=== PATIENT | male | born 1945 | race Hispanic/Latino ===

== ENCOUNTER 2018-11-12 14:03 | Outpatient (CLI) | payer MEDICARE | END 2018-11-12 14:04 | disposition home or self-care (01) | LOC: C.LAB 14:03 ==

== ENCOUNTER 2018-11-12 14:21 | Inpatient (IN) | payer MEDICARE, MEDICAID ==
[2018-11-12 14:21] VITALS: BMI 29.6
[2018-11-12] MEDS ORDERED: Sodium Chloride 0.9% 1,000 ML IV ONE (15:41)
[2018-11-12 16:11] LABS: BASO # 0.1 K/uL (0.0-0.2); BASO % 0.6 % (0.0-2.0); EOS # 0.2 K/uL (0.0-0.7); EOS % 1.4 % (0.0-4.0); HEMOGLOBIN 14.6 g/dL (12.0-18.0); LYMPH # 1.5 K/uL (1.0-4.3); LYMPH % 13.3 % (20.0-40.0); MEAN CELL VOLUME 90.1 fL (80.0-94.0); MEAN CORPUSCULAR HEMOGLOBIN 30.2 pg (27.0-31.0); MEAN CORPUSCULAR HGB CONC 33.5 g/dL (33.0-37.0); MEAN PLATELET VOLUME 8.3 fL (7.2-11.7); MONO # 0.8 K/uL (0.0-0.8); MONO % 6.7 % (0.0-10.0); NRBC % 0.1 % (0.0-2.0); RBC 4.82 Mil/uL (4.40-5.90); RED CELL DISTRIBUTION WIDTH 14.5 % (11.5-14.5); WHITE BLOOD COUNT 11.6 K/uL (4.8-10.8)
[2018-11-12] MEDS ORDERED: Sodium Chloride 0.9% 1,000 ML ONE ×2 (16:16→18:33)
--- NOTE | 2018-11-12 16:25 | C.PDOC ---
History Of Present Illness 72 y/o male presents to the ER complaining of diffuse abdominal pain which has been present for the past 1 week. Patient states that he has dry heaving. Patient reports that he is scheduled to see GI tomorrow. Denies having fever,chi lls, vomiting, diarrhea, constipation, dysuria,and hematuria. <Kevin Orellana M - Last Filed: 11/12/18 18:53> History Per: Patient History/Exam Limitations: no limitations Onset/Duration Of Symptoms: Days Current Symptoms Are (Timing): Still Present Severity: Moderate <Kevin Orellana - Last Filed: 11/12/18 18:53> <Murray Cox - Last Filed: 11/13/18 11:27> Time Seen by Provider: 11/12/18 15:35 Chief Complaint (Nursing): Abdominal Pain Past Medical History Reviewed: Historical Data, Nursing Documentation, Vital Signs Vital Signs: Last Vital Signs Temp 97.6 F 11/12/18 15:01 Pulse 94 H 11/12/18 15:01 Resp 19 11/12/18 15:01 BP 119/82 11/12/18 15:01 Pulse Ox 91 L 11/12/18 15:01 - Medical History PMH: Colonic Polyps, COPD, HTN, Hypercholesterolemia Other Surgeries: Hx of surgeries Family History: States: No Known Family Hx - Social History Hx Alcohol Use: No Hx Substance Use: No - Immunization History Hx Tetanus Toxoid Vaccination: No Hx Influenza Vaccination: No Hx Pneumococcal Vaccination: No <Kevin Orellana M - Last Filed: 11/12/18 18:53> Vital Signs: Last Vital Signs Temp 97.6 F 11/13/18 08:43 Pulse 62 11/13/18 08:43 Resp 20 11/13/18 08:43 BP 111/74 11/13/18 08:43 Pulse Ox 95 11/13/18 08:43 <Murray Cox - Last Filed: 11/13/18 11:27> Review Of Systems Except As Marked, All Systems Reviewed And Found Negative. Constitutional: Negative for: Fever, Chills Gastrointestinal: Positive for: Abdominal Pain. Negative for: Vomiting, Diarrhea Genitourinary: Negative for: Dysuria, Hematuria <Kevin Orellana M - Last Filed: 11/12/18 18:53> Physical Exam - Physical Exam Appears: Non-toxic, No Acute Distress Skin: Normal Color, Warm, Dry Head: Atraumatic, Normacephalic Eye(s): bilateral: Normal Inspection Nose: Normal Oral Mucosa: Moist Neck: Supple Chest: Symmetrical Cardiovascular: Rhythm Regular Respiratory: Normal Breath Sounds, No Rales, No Rhonchi, No Wheezing Gastrointestinal/Abdominal: Bowel Sounds (normal bowel sounds), Soft, Tenderness (diffuse tenderness), No Guarding, No Rebound Neurological/Psych: Oriented x3, Normal Speech <EstebanMaicolBrown M - Last Filed: 11/12/18 18:53> ED Course And Treatment - Laboratory Results Result Diagrams: 11/12/18 16:08 11/12/18 16:47 ECG: Interpreted By Me, Viewed By Me ECG Rhythm: Sinus Rhythm Interpretation Of ECG: NSR with normal intervals, normal axises, and no ST/ T wave abnormalities Rate From EC O2 Sat by Pulse Oximetry: 91 (RA) Pulse Ox Interpretation: Other (Low) - CT Scan/US CT - Abd & Pelv. Other Rad Studies (CT/US): Read By Radiologist, Radiology Report Reviewed CT/US Interpretation: PROCEDURE: CT Abdomen and Pelvis without Oral or IV contrast. HISTORY: abd. pain. COMPARISON: None available. TECHNIQUE: Contiguous axial images of the abdomen and pelvis. No oral or IV contrast administered. Coronal and Sagittal reformats generated and reviewed. Radiation dose: Total exam DLP = 1081.57 mGy-cm. This CT exam was performed using one or more of the following dose reduction techniques: Automated exposure control, adjustment of the mA and/or kV according to patient size, and/or use of iterative reconstruction technique. FINDINGS: There is limited evaluation of the solid organs without the administration of IV contrast. LOWER THORAX: No visible consolidation, pleural effusion, or pneumothorax. LIVER: Unremarkable unenhanced appearance. GALLBLADDER AND BILE DUCTS: Punctate probable gallstone in the gallbladder. PANCREAS: Fatty atrophy of the pancreas. SPLEEN: Unremarkable unenhanced appearance. ADRENALS: Unremarkable. KIDNEYS AND URETERS: The left kidney is absent presumably due to nephrectomy; correlate clinically. 5.5 cm and 1.6 cm right renal hypodense lesions consistent with cysts. No right-sided hydronephrosis or obstructing calculus. No hydronephrosis or obstructing renal calculus. BLADDER: Thick-walled urinary bladder likely exaggerated by under distension. REPRODUCTIVE: The prostate gland measures approximately 5.1 x 5.8 cm. APPENDIX: The appendix appears within normal limits of caliber. No secondary signs of acute appendicitis. BOWEL: The stomach is nondistended. Lack of oral contrast limits evaluation for bowel pathology. The bowel loops appear within normal limits of caliber without evidence of intestinal obstruction. Diverticulosis without CT evidence of acute diverticulitis. PERITONEUM: No significant free fluid. No definite free air. LYMPH NODES: No bulky lymphadenopathy identified. VASCULATURE: Atherosclerotic calcifications of the aorta and branches. No aortic aneurysm. BONES: Degenerative changes. OTHER FINDINGS: Fat containing left inguinal hernia. IMPRESSION: Probable gallstone within the gallbladder. Left nephrectomy. 5.5 cm 1.6 cm right renal cysts. Thick-walled urinary bladder likely exaggerated by under distension. Recommend correlation with urinalysis. Enlarged prostate gland. Recommend correlation with PSA. Diverticulosis without CT evidence of acute diverticulitis. Additional findings as above. <Kevin Orellana M - Last Filed: 11/12/18 18:53> - Laboratory Results Result Diagrams: 11/13/18 07:50 11/13/18 07:50 Lab Results: Troponin I < 0.0120 ng/mL (0.00-0.120) 11/12/18 16:08 Total Bilirubin 0.3 mg/dL (0.2-1.3) 11/13/18 07:50 AST 33 U/L (17-59) 11/13/18 07:50 ALT 15 U/L (21-72) L 11/13/18 07:50 Alkaline Phosphatase 49 U/L (38-126) 11/13/18 07:50 Total Protein 6.7 g/dL (6.3-8.3) 11/13/18 07:50 Albumin 4.2 g/dL (3.5-5.0) 11/13/18 07:50 Globulin 2.5 gm/dL (2.2-3.9) 11/13/18 07:50 Albumin/Globulin Ratio 1.7 (1.0-2.1) 11/13/18 07:50 Amylase 163 U/L (30-110) H 11/13/18 07:50 Lipase 1260 U/L (23-300) H 11/13/18 07:50 Urine Color Yellow (YELLOW) 11/12/18 17:32 Urine Clarity Hazy (Clear) 11/12/18 17:32 Urine pH 7.0 (5.0-8.0) 11/12/18 17:32 Ur Specific [place] 1.015 (1.003-1.030) 11/12/18 17:32 Urine Protein Negative mg/dL (NEGATIVE) 11/12/18 17:32 Urine Glucose (UA) Normal mg/dL (Normal) 11/12/18 17:32 Urine Ketones Negative mg/dL (NEGATIVE) 11/12/18 17:32 Urine Blood Negative (NEGATIVE) 11/12/18 17:32 Urine Nitrate Negative (NEGATIVE) 11/12/18 17:32 Urine Bilirubin Negative (NEGATIVE) 11/12/18 17:32 Urine Urobilinogen Normal mg/dL (0.2-1.0) 11/12/18 17:32 Ur Leukocyte Esterase Neg Mikaela/uL (Negative) 11/12/18 17:32 Urine WBC (Auto) 1 /hpf (0-5) 11/12/18 17:32 Urine RBC (Auto) 1 /hpf (0-3) 11/12/18 17:32 Ur Squamous Epith Cells < 1 /hpf (0-5) 11/12/18 17:32 <Murray Cox - Last Filed: 11/13/18 11:27> Supervising Attending Note - Supervising Attending Note The Documented history was done by the: Attending Physician The documented physical exam was done by the: Attending Physician The documented procedures were done by the: Attending Physician - Attestation: I have personally seen and examined this patient.: Yes I have fully participated in the care of the patient.: Yes <Murray Cox - Last Filed: 11/13/18 11:27> Medical Decision Making Medical Decision Making: Assessment: Abdominal Pain Plan: --Labs --UA --CXR --CT- Abd & Pelv. --IV Fluids --Zofran IV --Pepcid IV --Toradol IV <Kevin Orellana - Last Filed: 11/12/18 18:53> Disposition Discussed With : Marcie Benton Doctor Will See Patient In The: Hospital Counseled Patient/Family Regarding: Studies Performed, Diagnosis - Disposition Disposition Time: 17:45 <Kevin Orellana - Last Filed: 11/12/18 18:53> <Murray Cox - Last Filed: 11/13/18 11:27> - Disposition Disposition: HOSPITALIZED Condition: FAIR - Clinical Impression Clinical Impression: Renal failure, Hyperkalemia, Pancreatitis - Scribe Statement The provider has reviewed the documentation as recorded by the Scribe Nolan Li Provider Attestation: All medical record entries made by the Scribe were at my direction and persona lly dictated by me. I have reviewed the chart and agree that the record accurately reflects my personal performance of the history, physical exam, medical decision making, and the department course for this patient. I have also personally directed, reviewed, and agree with the discharge instructions and disposition. <Kevin Orellana M - Last Filed: 11/12/18 18:53> Attending/Attestation - Attestation I have personally seen and examined this patient.: Yes I have fully participated in the care of the patient.: Yes I have reviewed all pertinent clinical information: Yes Notes (Text): 11/13/18 11:26 Patient seen and chart reviewed. Patient symptoms appear to be related to acute renal insufficiency in a patient with one kidney. Underlying dehydration and pre-renal azotemia most likely. Perhaps related to acute gastroenteritis. Gallstone does not appear to be obstucting and is an incidental finding. Elevated lipase not significant in the absence of CT findings of pancreatitis. IV hydration Renal evaluation pending Supportive care from GI point of view. <Murray Cox - Last Filed: 11/13/18 11:27>
[2018-11-12 16:35] LABS: ALB/GLOB RATIO 1.4 (1.0-2.1); ALT/SGPT 18 U/L (21-72); AST/SGOT 32 U/L (17-59); BLOOD UREA NITROGEN 81 mg/dL (9-20); CALCIUM 11.3 mg/dl (8.6-10.4); GFR NON-AFRICAN AMERICAN 10; LIPASE 585 U/L (23-300)
[2018-11-12 17:13] LABS: CALCIUM 10.4 mg/dl (8.6-10.4)
[2018-11-12] MEDS ORDERED: Dextrose 50% SYRINGE Inj (50 ml) IV STA (17:43)
[2018-11-12] MEDS ORDERED: (Novolin R) Insulin Human Regular 100 units/ml vial IV ONE (17:43)
--- NOTE | 2018-11-12 17:59 | RAD ---
Date of service: 11/12/2018 PROCEDURE: CHEST RADIOGRAPH, 1 VIEW HISTORY: abd pain COMPARISON: None available. FINDINGS: LUNGS: Clear. PLEURA: No pneumothorax or pleural fluid seen. CARDIOVASCULAR: Atherosclerotic calcifications identified primarily aortic arch. No radiographic findings to suggest acute or significant cardiovascular disease. OSSEOUS STRUCTURES: No significant abnormalities. VISUALIZED UPPER ABDOMEN: Normal. OTHER FINDINGS: None. IMPRESSION: No active disease.
[2018-11-12 18:04] LABS: SQUAMOUS EPITHIAL < 1 /hpf (0-5); URINE BILIRUBIN NEGATIVE (NEGATIVE); URINE BLOOD NEGATIVE (NEGATIVE); URINE CLARITY Hazy (Clear); URINE COLOR Yellow (YELLOW); URINE GLUCOSE (UA) NORMAL (Normal); URINE LEUKOCYTE ESTERASE NEG Leu/uL (Negative); URINE PROTEIN NEGATIVE (NEGATIVE); URINE UROBILINOGEN NORMAL mg/dL (0.2-1.0)
[2018-11-12] MEDS ORDERED: Dextrose 50% SYRINGE Inj (50 ml) ONE (18:33)
[2018-11-12] MEDS ORDERED: (Novolin R) Insulin Human Regular 100 units/ml vial ONE (18:33)
--- NOTE | 2018-11-12 18:50 | CT ---
PROCEDURE: CT Abdomen and Pelvis without Oral or IV contrast. HISTORY: abd. pain COMPARISON: None available. TECHNIQUE: Contiguous axial images of the abdomen and pelvis. No oral or IV contrast administered. Coronal and Sagittal reformats generated and reviewed. Radiation dose: Total exam DLP = 1081.57 mGy-cm. This CT exam was performed using one or more of the following dose reduction techniques: Automated exposure control, adjustment of the mA and/or kV according to patient size, and/or use of iterative reconstruction technique. FINDINGS: There is limited evaluation of the solid organs without the administration of IV contrast. LOWER THORAX: No visible consolidation, pleural effusion, or pneumothorax. LIVER: Unremarkable unenhanced appearance. GALLBLADDER AND BILE DUCTS: Punctate probable gallstone in the gallbladder. PANCREAS: Fatty atrophy of the pancreas. SPLEEN: Unremarkable unenhanced appearance. ADRENALS: Unremarkable. KIDNEYS AND URETERS: The left kidney is absent presumably due to nephrectomy; correlate clinically. 5.5 cm and 1.6 cm right renal hypodense lesions consistent with cysts. No right-sided hydronephrosis or obstructing calculus. No hydronephrosis or obstructing renal calculus. BLADDER: Thick-walled urinary bladder likely exaggerated by under distension. REPRODUCTIVE: The prostate gland measures approximately 5.1 x 5.8 cm. APPENDIX: The appendix appears within normal limits of caliber. No secondary signs of acute appendicitis. BOWEL: The stomach is nondistended. Lack of oral contrast limits evaluation for bowel pathology. The bowel loops appear within normal limits of caliber without evidence of intestinal obstruction. Diverticulosis without CT evidence of acute diverticulitis. PERITONEUM: No significant free fluid. No definite free air. LYMPH NODES: No bulky lymphadenopathy identified. VASCULATURE: Atherosclerotic calcifications of the aorta and branches. No aortic aneurysm. BONES: Degenerative changes. OTHER FINDINGS: Fat containing left inguinal hernia. IMPRESSION: Probable gallstone within the gallbladder. Left nephrectomy. 5.5 cm 1.6 cm right renal cysts. Thick-walled urinary bladder likely exaggerated by under distension. Recommend correlation with urinalysis. Enlarged prostate gland. Recommend correlation with PSA. Diverticulosis without CT evidence of acute diverticulitis. Additional findings as above.
[2018-11-13 02:08] VITALS: RESP 20
[2018-11-13 08:23] LABS: BASO % 0.6 % (0.0-2.0); EOS # 0.2 K/uL (0.0-0.7); EOS % 3.5 % (0.0-4.0); LYMPH # 1.5 K/uL (1.0-4.3); LYMPH % 23.9 % (20.0-40.0); MEAN CELL VOLUME 91.2 fL (80.0-94.0); MEAN CORPUSCULAR HEMOGLOBIN 30.8 pg (27.0-31.0); MEAN CORPUSCULAR HGB CONC 33.8 g/dL (33.0-37.0); MEAN PLATELET VOLUME 7.8 fL (7.2-11.7); MONO # 0.5 K/uL (0.0-0.8); MONO % 7.2 % (0.0-10.0); NEUT # 4.1 K/uL (1.8-7.0); NEUT % 64.8 % (50.0-75.0); RBC 4.06 Mil/uL (4.40-5.90); RED CELL DISTRIBUTION WIDTH 14.7 % (11.5-14.5); WHITE BLOOD COUNT 6.3 K/uL (4.8-10.8)
[2018-11-13 08:28] LABS: HEMOGLOBIN 12.5 g/dL (12.0-18.0)
[2018-11-13 08:39] LABS: ALB/GLOB RATIO 1.7 (1.0-2.1); ALBUMIN 4.2 g/dL (3.5-5.0); CALCIUM 9.4 mg/dl (8.6-10.4)
--- NOTE | 2018-11-13 08:43 | CP.PCM.CON ---
<ToddCamilo - Last Filed: 11/13/18 11:23> History of Present Illness - History of Present Illness History of Present Illness: GI Fellow PGY4, Consult note. Glen Anderson is a 72M presenting with abdominal pain, nausea, vomiting, diarrhea. At time of my exam patient symptoms have mostly resolved stating he "feels much beter now". Patient was complaining of vague moderate diffuse abdominal pain x 1 week. He also complained of non-bloody vomiting. The last time he vomited was 5 days ago. However, he has had difficulty eating and drinking. He was supposed to see GI in the clinic for his symptoms. PCP also has evaluated labs and has told him that his kidney numbers are "getting higher". In the hospital, workup has revealed mild leukocytosis, hyponatremia, significantly elevated potassium, BUN and Cr. We do not have baseline data in the hospital. CT A/P showed small gallstones, absent left kidney, right large kidney cyst, diverticulosis PMHx - CKD, HTN, enlarged prostate, COPD PSHx- appendectomy, left nephrectomy 25yrs ago, colonoscopy (reportedly normal) FMHx - Denies GI related cancers SocHx- Previous heavy smoker. Denies alcohol. 12pt ROS completed and negative except for above. Past Patient History - Infectious Disease Hx of Infectious Diseases: None - Past Medical History & Family History Past Medical History?: Yes - Past Social History Smoking Status: Former Smoker - CARDIAC Hx Hypercholesterolemia: Yes Hx Hypertension: Yes - PULMONARY Hx Chronic Obstructive Pulmonary Disease (COPD): Yes - NEUROLOGICAL Hx Neurological Disorder: No - HEENT Hx HEENT Problems: No - RENAL Other/Comment: LEFT KIDNEY REMOVED - ENDOCRINE/METABOLIC Hx Endocrine Disorders: No - HEMATOLOGICAL/ONCOLOGICAL Hx Blood Disorders: No - INTEGUMENTARY Hx Dermatological Problems: Yes Other/Comment: HX: MASS RIGHT PALM - MUSCULOSKELETAL/RHEUMATOLOGICAL Hx Falls: No - GASTROINTESTINAL Hx Gastrointestinal Disorders: Yes - GENITOURINARY/GYNECOLOGICAL Hx Genitourinary Disorders: Yes Hx Prostate Problems: Yes (ENLARGED) - PSYCHIATRIC Hx Substance Use: No - SURGICAL HISTORY Hx Surgeries: Yes Other/Comment: "I'VE HAD KIDNEY AND LIVER BIOPSIES BUT NO CANCER-JUST NEEDED TO BE CHECKED.". LEFT LOBECTOMY - ANESTHESIA Hx Anesthesia: Yes Hx Anesthesia Reactions: No Hx Malignant Hyperthermia: No Meds Allergies/Adverse Reactions: Allergies Allergy/AdvReac Type Severity Reaction Status Date / Time No Known Allergies Allergy Verified 11/12/18 15:05 - Medications Medications: Current Medications Heparin Sodium (Porcine) (Heparin) 5,000 units SC Q8 PENDING SALE TO [facility] Last Admin: 11/13/18 06:29 Dose: 5,000 units Hydrochlorothiazide (Microzide) 12.5 mg PO DAILY PENDING SALE TO [facility] Montelukast Sodium (Singulair) 10 mg PO DAILY PENDING SALE TO [facility] Ondansetron HCl (Zofran Inj) 4 mg IVP Q6 PRN PRN Reason: Nausea/Vomiting Last Admin: 11/12/18 22:49 Dose: 4 mg Tamsulosin HCl (Flomax) 0.4 mg PO DAILY PENDING SALE TO [facility] Tramadol HCl (Ultram) 50 mg PO Q12 PRN PRN Reason: Pain, severe (8-10) Last Admin: 11/12/18 22:47 Dose: 50 mg Physical Exam - Constitutional Appears: Non-toxic, No Acute Distress - Head Exam Head Exam: ATRAUMATIC, NORMAL INSPECTION - Eye Exam Eye Exam: EOMI, Normal appearance - Respiratory Exam Respiratory Exam: Clear to Auscultation Bilateral, NORMAL BREATHING PATTERN - Cardiovascular Exam Cardiovascular Exam: REGULAR RHYTHM, +S1, +S2 - GI/Abdominal Exam GI & Abdominal Exam: Normal Bowel Sounds, Soft. absent: Organomegaly, Tenderness - Extremities Exam Extremities exam: Positive for: normal inspection. Negative for: pedal edema - Neurological Exam Neurological exam: Alert, CN II-XII Intact, Oriented x3 - Skin Skin Exam: Normal Color, Warm Results - Vital Signs Recent Vital Signs: Last Vital Signs Temp 97.4 F L 11/12/18 23:00 Pulse 55 L 11/13/18 04:00 Resp 20 11/12/18 23:00 BP 93/58 L 11/12/18 23:00 Pulse Ox 95 11/12/18 23:00 - Labs Result Diagrams: 11/13/18 07:50 11/13/18 07:50 Labs: Laboratory Results - last 24 hr 11/12/18 11/12/18 11/12/18 16:08 16:08 16:47 WBC 11.6 H RBC 4.82 Hgb 14.6 Hct 43.4 MCV 90.1 MCH 30.2 MCHC 33.5 RDW 14.5 Plt Count 245 MPV 8.3 Neut % (Auto) 78.0 H Lymph % (Auto) 13.3 L [place] % (Auto) 6.7 Eos % (Auto) 1.4 Baso % (Auto) 0.6 Neut # (Auto) 9.0 H Lymph # (Auto) 1.5 [place] # (Auto) 0.8 Eos # (Auto) 0.2 Baso # (Auto) 0.1 Sodium 129 L 131 L Potassium 6.5 H* 6.3 H* Chloride 94 L 94 L Carbon Dioxide 26 29 Anion Gap 16 14 BUN 81 H 80 H Creatinine 5.6 H 5.6 H Est GFR ( Amer) 12 12 Est GFR (Non-Af Amer) 10 10 POC Glucose (mg/dL) Random Glucose 86 83 Calcium 11.3 H 10.4 Total Bilirubin 0.8 AST 32 ALT 18 L Alkaline Phosphatase 50 Troponin I < 0.0120 Total Protein 8.5 H Albumin 5.0 Globulin 3.5 Albumin/Globulin Ratio 1.4 Lipase 585 H Urine Color Urine Clarity Urine pH Ur Specific [place] Urine Protein Urine Glucose (UA) Urine Ketones Urine Blood Urine Nitrate Urine Bilirubin Urine Urobilinogen Ur Leukocyte Esterase Urine WBC (Auto) Urine RBC (Auto) Ur Squamous Epith Cells 11/12/18 11/13/18 11/13/18 17:32 00:40 07:50 WBC 6.3 RBC 4.06 L Hgb 12.5 D Hct 37.0 MCV 91.2 MCH 30.8 MCHC 33.8 RDW 14.7 H Plt Count 180 MPV 7.8 Neut % (Auto) 64.8 Lymph % (Auto) 23.9 [place] % (Auto) 7.2 Eos % (Auto) 3.5 Baso % (Auto) 0.6 Neut # (Auto) 4.1 Lymph # (Auto) 1.5 [place] # (Auto) 0.5 Eos # (Auto) 0.2 Baso # (Auto) 0.0 Sodium Potassium Chloride Carbon Dioxide Anion Gap BUN Creatinine Est GFR ( Amer) Est GFR (Non-Af Amer) POC Glucose (mg/dL) 116 H Random Glucose Calcium Total Bilirubin AST ALT Alkaline Phosphatase Troponin I Total Protein Albumin Globulin Albumin/Globulin Ratio Lipase Urine Color Yellow Urine Clarity Hazy Urine pH 7.0 Ur Specific [place] 1.015 Urine Protein Negative Urine Glucose (UA) Normal Urine Ketones Negative Urine Blood Negative Urine Nitrate Negative Urine Bilirubin Negative Urine Urobilinogen Normal Ur Leukocyte Esterase Neg Urine WBC (Auto) 1 Urine RBC (Auto) 1 Ur Squamous Epith Cells < 1 Assessment & Plan - Assessment and Plan (Free Text) Assessment: #Abdominal pain - resolved #Hyperkalemia #Hyponatremia #CKD, likely GERMAN from poor PO intake #HTN #COPD PLAN: -CT A/P showed small gallstones, absent left kidney, right large kidney cyst, diverticulosis -Doubt pancreatitis or cholecystitis -Recommend continue supportive care with IV hydration and kayexalate -BP on the low side, and unknown kidney status. Recommend holding HCTZ until PCP/threshing operator evaluates. -Follow electrolytes -Follow up nephrology recs -Zofran as needed -Currently tolerating heart healthy diet. If still having N/V would reduce diet to Full liquid diet Case will be discussed with Dr. Cox, this is a preliminary note. - Date & Time Date: 11/13/18 Time: 08:44 <Murray Cox - Last Filed: 11/14/18 10:32> Meds - Medications Medications: Current Medications Heparin Sodium (Porcine) (Heparin) 5,000 units SC Q8 PENDING SALE TO [facility] Last Admin: 11/14/18 09:36 Dose: 5,000 units Hydrochlorothiazide (Microzide) 12.5 mg PO DAILY PENDING SALE TO [facility] Last Admin: 11/14/18 09:24 Dose: 12.5 mg Sodium Chloride (Sodium Chloride 0.9%) 1,000 mls @ 100 mls/hr IV .Q10H PENDING SALE TO [facility] Last Admin: 11/13/18 21:03 Dose: 100 mls/hr Montelukast Sodium (Singulair) 10 mg PO DAILY PENDING SALE TO [facility] Last Admin: 11/14/18 09:23 Dose: 10 mg Ondansetron HCl (Zofran Inj) 4 mg IVP Q6 PRN PRN Reason: Nausea/Vomiting Last Admin: 11/13/18 21:02 Dose: 4 mg Tamsulosin HCl (Flomax) 0.4 mg PO DAILY PENDING SALE TO [facility] Last Admin: 11/14/18 09:23 Dose: 0.4 mg Tramadol HCl (Ultram) 50 mg PO Q12 PRN PRN Reason: Pain, severe (8-10) Last Admin: 11/13/18 21:01 Dose: 50 mg Results - Vital Signs Recent Vital Signs: Last Vital Signs Temp 973 F H 11/14/18 07:53 Pulse 56 L 11/14/18 07:53 Resp 20 11/14/18 07:53 BP 114/66 11/14/18 07:53 Pulse Ox 96 11/14/18 07:53 - Labs Result Diagrams: 11/13/18 07:50 11/13/18 12:28 Labs: Laboratory Results - last 24 hr 11/13/18 11/13/18 12:28 18:45 Sodium 130 L Potassium 5.4 H Chloride 93 L Carbon Dioxide 29 Anion Gap 13 BUN 81 H Creatinine 5.1 H Est GFR ( Amer) 14 Est GFR (Non-Af Amer) 11 Random Glucose 106 Calcium 8.9 Ur Random Creatinine 63.3 U Random Total Protein 14.0 H Ur Random Sodium 117 Attending/Attestation - Attestation I have personally seen and examined this patient.: Yes I have fully participated in the care of the patient.: Yes I have reviewed all pertinent clinical information: Yes Notes (Text): 11/14/18 10:31 Patient seen and chart reviewed. Symptoms likely due to acute on chronic renal insufficiency. Agree with IV hydration. Will follow
--- NOTE | 2018-11-13 10:10 | CP.PCM.CON ---
History of Present Illness - History of Present Illness History of Present Illness: patient seen and examined consult dictated creatinine 1.6 in 2016 rise in creatine now could be related to natural progession of ckd can not r/o jose due to volume depletion,medication toxicity agree with iv fluids for now urine studies avoid neprotoxins including karlos,arb,nsaid or contrast serial chems may require dialysis if no sighnificant improvement in renal function Past Patient History - Infectious Disease Hx of Infectious Diseases: None - Past Medical History & Family History Past Medical History?: Yes - Past Social History Smoking Status: Former Smoker - CARDIAC Hx Hypercholesterolemia: Yes Hx Hypertension: Yes - PULMONARY Hx Chronic Obstructive Pulmonary Disease (COPD): Yes - NEUROLOGICAL Hx Neurological Disorder: No - HEENT Hx HEENT Problems: No - RENAL Other/Comment: LEFT KIDNEY REMOVED - ENDOCRINE/METABOLIC Hx Endocrine Disorders: No - HEMATOLOGICAL/ONCOLOGICAL Hx Blood Disorders: No - INTEGUMENTARY Hx Dermatological Problems: Yes Other/Comment: HX: MASS RIGHT PALM - MUSCULOSKELETAL/RHEUMATOLOGICAL Hx Falls: No - GASTROINTESTINAL Hx Gastrointestinal Disorders: Yes - GENITOURINARY/GYNECOLOGICAL Hx Genitourinary Disorders: Yes Hx Prostate Problems: Yes (ENLARGED) - PSYCHIATRIC Hx Substance Use: No - SURGICAL HISTORY Hx Surgeries: Yes Other/Comment: "I'VE HAD KIDNEY AND LIVER BIOPSIES BUT NO CANCER-JUST NEEDED TO BE CHECKED.". LEFT LOBECTOMY - ANESTHESIA Hx Anesthesia: Yes Hx Anesthesia Reactions: No Hx Malignant Hyperthermia: No Meds Allergies/Adverse Reactions: Allergies Allergy/AdvReac Type Severity Reaction Status Date / Time No Known Allergies Allergy Verified 11/12/18 15:05 - Medications Medications: Current Medications Heparin Sodium (Porcine) (Heparin) 5,000 units SC Q8 [facility] Last Admin: 11/13/18 06:29 Dose: 5,000 units Hydrochlorothiazide (Microzide) 12.5 mg PO DAILY [facility] Montelukast Sodium (Singulair) 10 mg PO DAILY [facility] Ondansetron HCl (Zofran Inj) 4 mg IVP Q6 PRN PRN Reason: Nausea/Vomiting Last Admin: 11/13/18 08:53 Dose: 4 mg Tamsulosin HCl (Flomax) 0.4 mg PO DAILY [facility] Tramadol HCl (Ultram) 50 mg PO Q12 PRN PRN Reason: Pain, severe (8-10) Last Admin: 11/12/18 22:47 Dose: 50 mg Results - Vital Signs Recent Vital Signs: Last Vital Signs Temp 97.6 F 11/13/18 08:43 Pulse 62 11/13/18 08:43 Resp 20 11/13/18 08:43 BP 111/74 11/13/18 08:43 Pulse Ox 95 11/13/18 08:43 - Labs Result Diagrams: 11/13/18 07:50 11/13/18 07:50 Labs: Laboratory Results - last 24 hr 11/12/18 11/12/18 11/12/18 16:08 16:08 16:47 WBC 11.6 H RBC 4.82 Hgb 14.6 Hct 43.4 MCV 90.1 MCH 30.2 MCHC 33.5 RDW 14.5 Plt Count 245 MPV 8.3 Neut % (Auto) 78.0 H Lymph % (Auto) 13.3 L Haskell % (Auto) 6.7 Eos % (Auto) 1.4 Baso % (Auto) 0.6 Neut # (Auto) 9.0 H Lymph # (Auto) 1.5 Haskell # (Auto) 0.8 Eos # (Auto) 0.2 Baso # (Auto) 0.1 Sodium 129 L 131 L Potassium 6.5 H* 6.3 H* Chloride 94 L 94 L Carbon Dioxide 26 29 Anion Gap 16 14 BUN 81 H 80 H Creatinine 5.6 H 5.6 H Est GFR ( Amer) 12 12 Est GFR (Non-Af Amer) 10 10 POC Glucose (mg/dL) Random Glucose 86 83 Calcium 11.3 H 10.4 Total Bilirubin 0.8 AST 32 ALT 18 L Alkaline Phosphatase 50 Troponin I < 0.0120 Total Protein 8.5 H Albumin 5.0 Globulin 3.5 Albumin/Globulin Ratio 1.4 Amylase Lipase 585 H Urine Color Urine Clarity Urine pH Ur Specific Carney Urine Protein Urine Glucose (UA) Urine Ketones Urine Blood Urine Nitrate Urine Bilirubin Urine Urobilinogen Ur Leukocyte Esterase Urine WBC (Auto) Urine RBC (Auto) Ur Squamous Epith Cells 11/12/18 11/13/18 11/13/18 17:32 00:40 07:50 WBC 6.3 RBC 4.06 L Hgb 12.5 D Hct 37.0 MCV 91.2 MCH 30.8 MCHC 33.8 RDW 14.7 H Plt Count 180 MPV 7.8 Neut % (Auto) 64.8 Lymph % (Auto) 23.9 Haskell % (Auto) 7.2 Eos % (Auto) 3.5 Baso % (Auto) 0.6 Neut # (Auto) 4.1 Lymph # (Auto) 1.5 Haskell # (Auto) 0.5 Eos # (Auto) 0.2 Baso # (Auto) 0.0 Sodium Potassium Chloride Carbon Dioxide Anion Gap BUN Creatinine Est GFR ( Amer) Est GFR (Non-Af Amer) POC Glucose (mg/dL) 116 H Random Glucose Calcium Total Bilirubin AST ALT Alkaline Phosphatase Troponin I Total Protein Albumin Globulin Albumin/Globulin Ratio Amylase Lipase Urine Color Yellow Urine Clarity Hazy Urine pH 7.0 Ur Specific Carney 1.015 Urine Protein Negative Urine Glucose (UA) Normal Urine Ketones Negative Urine Blood Negative Urine Nitrate Negative Urine Bilirubin Negative Urine Urobilinogen Normal Ur Leukocyte Esterase Neg Urine WBC (Auto) 1 Urine RBC (Auto) 1 Ur Squamous Epith Cells < 1 11/13/18 07:50 WBC RBC Hgb Hct MCV MCH MCHC RDW Plt Count MPV Neut % (Auto) Lymph % (Auto) Haskell % (Auto) Eos % (Auto) Baso % (Auto) Neut # (Auto) Lymph # (Auto) Haskell # (Auto) Eos # (Auto) Baso # (Auto) Sodium 133 Potassium 5.4 H Chloride 94 L Carbon Dioxide 31 H Anion Gap 14 BUN 83 H Creatinine 6.0 H Est GFR ( Amer) 11 Est GFR (Non-Af Amer) 9 POC Glucose (mg/dL) Random Glucose 104 D Calcium 9.4 Total Bilirubin 0.3 AST 33 ALT 15 L Alkaline Phosphatase 49 Troponin I Total Protein 6.7 Albumin 4.2 Globulin 2.5 Albumin/Globulin Ratio 1.7 Amylase 163 H Lipase 1260 H Urine Color Urine Clarity Urine pH Ur Specific Carney Urine Protein Urine Glucose (UA) Urine Ketones Urine Blood Urine Nitrate Urine Bilirubin Urine Urobilinogen Ur Leukocyte Esterase Urine WBC (Auto) Urine RBC (Auto) Ur Squamous Epith Cells
[2018-11-13 12:40] LABS: CALCIUM 8.9 mg/dl (8.6-10.4)
[2018-11-13 19:07] LABS: CREATININE, RANDOM URINE 63.3 mg/dL
--- NOTE | 2018-11-13 19:26 | CP.PCM.HP ---
History of Present Illness - History of Present Illness History of Present Illness: Glen Anderson is a 72M presenting with abdominal pain, nausea, vomiting, diarrhea. At time of my exam patient symptoms have mostly resolved stating he "feels much beter now". Patient was complaining of vague moderate diffuse abdominal pain x 1 week. He also complained of non-bloody vomiting. The last time he vomited was 5 days ago. However, he has had difficulty eating and drinking. He was supposed to see GI in the clinic for his symptoms. PCP also has evaluated labs and has told him that his kidney numbers are "getting higher". Present on Admission - Present on Admission Any Indicators Present on Admission: No History of DVT/PE: No History of Uncontrolled Diabetes: No Urinary Catheter: No Decubitus Ulcer Present: No Review of Systems - Review of Systems All systems: reviewed and no additional remarkable complaints except (as mentioned in HPI) Past Patient History - Infectious Disease Hx of Infectious Diseases: None - Past Medical History & Family History Past Medical History?: Yes - Past Social History Smoking Status: Former Smoker - CARDIAC Hx Hypercholesterolemia: Yes Hx Hypertension: Yes - PULMONARY Hx Chronic Obstructive Pulmonary Disease (COPD): Yes - NEUROLOGICAL Hx Neurological Disorder: No - HEENT Hx HEENT Problems: No - RENAL Other/Comment: LEFT KIDNEY REMOVED - ENDOCRINE/METABOLIC Hx Endocrine Disorders: No - HEMATOLOGICAL/ONCOLOGICAL Hx Blood Disorders: No - INTEGUMENTARY Hx Dermatological Problems: Yes Other/Comment: HX: MASS RIGHT PALM - MUSCULOSKELETAL/RHEUMATOLOGICAL Hx Falls: No - GASTROINTESTINAL Hx Gastrointestinal Disorders: Yes - GENITOURINARY/GYNECOLOGICAL Hx Genitourinary Disorders: Yes Hx Prostate Problems: Yes (ENLARGED) - PSYCHIATRIC Hx Substance Use: No - SURGICAL HISTORY Hx Surgeries: Yes Other/Comment: "I'VE HAD KIDNEY AND LIVER BIOPSIES BUT NO CANCER-JUST NEEDED TO BE CHECKED.". LEFT LOBECTOMY - ANESTHESIA Hx Anesthesia: Yes Hx Anesthesia Reactions: No Hx Malignant Hyperthermia: No Meds Allergies/Adverse Reactions: Allergies Allergy/AdvReac Type Severity Reaction Status Date / Time No Known Allergies Allergy Verified 11/12/18 15:05 Physical Exam - Head Exam Head Exam: NORMAL INSPECTION - Eye Exam Eye Exam: Normal appearance - ENT Exam ENT Exam: Mucous Membranes Moist - Neck Exam Neck exam: Positive for: Normal Inspection - Respiratory Exam Respiratory Exam: Clear to Auscultation Bilateral - Cardiovascular Exam Cardiovascular Exam: REGULAR RHYTHM, +S1, +S2 - GI/Abdominal Exam GI & Abdominal Exam: Normal Bowel Sounds Results - Vital Signs Recent Vital Signs: Last Vital Signs Temp 97.4 F L 11/13/18 15:00 Pulse 63 11/13/18 16:38 Resp 20 11/13/18 15:00 BP 134/84 11/13/18 15:00 Pulse Ox 95 11/13/18 15:00 - Labs Result Diagrams: 11/14/18 13:08 11/14/18 13:08 Labs: Laboratory Results - last 24 hr 11/13/18 11/13/18 11/13/18 00:40 07:50 07:50 WBC 6.3 RBC 4.06 L Hgb 12.5 D Hct 37.0 MCV 91.2 MCH 30.8 MCHC 33.8 RDW 14.7 H Plt Count 180 MPV 7.8 Neut % (Auto) 64.8 Lymph % (Auto) 23.9 Noble % (Auto) 7.2 Eos % (Auto) 3.5 Baso % (Auto) 0.6 Neut # (Auto) 4.1 Lymph # (Auto) 1.5 Noble # (Auto) 0.5 Eos # (Auto) 0.2 Baso # (Auto) 0.0 Sodium 133 Potassium 5.4 H Chloride 94 L Carbon Dioxide 31 H Anion Gap 14 BUN 83 H Creatinine 6.0 H Est GFR ( Amer) 11 Est GFR (Non-Af Amer) 9 POC Glucose (mg/dL) 116 H Random Glucose 104 D Calcium 9.4 Total Bilirubin 0.3 AST 33 ALT 15 L Alkaline Phosphatase 49 Total Protein 6.7 Albumin 4.2 Globulin 2.5 Albumin/Globulin Ratio 1.7 Amylase 163 H Lipase 1260 H Ur Random Creatinine U Random Total Protein Ur Random Sodium 11/13/18 11/13/18 12:28 18:45 WBC RBC Hgb Hct MCV MCH MCHC RDW Plt Count MPV Neut % (Auto) Lymph % (Auto) Noble % (Auto) Eos % (Auto) Baso % (Auto) Neut # (Auto) Lymph # (Auto) Noble # (Auto) Eos # (Auto) Baso # (Auto) Sodium 130 L Potassium 5.4 H Chloride 93 L Carbon Dioxide 29 Anion Gap 13 BUN 81 H Creatinine 5.1 H Est GFR ( Amer) 14 Est GFR (Non-Af Amer) 11 POC Glucose (mg/dL) Random Glucose 106 Calcium 8.9 Total Bilirubin AST ALT Alkaline Phosphatase Total Protein Albumin Globulin Albumin/Globulin Ratio Amylase Lipase Ur Random Creatinine 63.3 U Random Total Protein 14.0 H Ur Random Sodium 117 Assessment & Plan (1) GERMNA (acute kidney injury) Status: Acute (2) Abdominal pain Status: Acute - Assessment and Plan (Free Text) Plan: GI consult Nephrology consult IVF Follow electrolytes and Cr Zofran Hold KALEIGH/ARB DVT/GI prophalaxis
--- NOTE | 2018-11-13 20:42 | CARD ---
APPROVED REPORT Date of service: 11/12/2018 EKG Measurement Heart [id number] <Conclusion> Normal sinus rhythm Normal ECG
[2018-11-13] MEDS: Sodium Chloride 0.9% 1,000 ML IV SCH (21:03)
--- NOTE | 2018-11-14 06:52 | CON ---
DATE: 11/13/2018 ATTENDING PHYSICIAN: Marcie Benton MD HISTORY OF PRESENT ILLNESS: The patient is a 72-year-old white male who is being seen for renal failure and hyperkalemia. The patient has a history of hypertension, unilateral nephrectomy approximately 25 years ago for what appears to be traumatic kidney injury. He was seen in the office in 2016 with a creatinine of 1.6. He was last seen in 2017, but no blood work was obtained. Over the last week, he developed a cough and was given antibiotics. He also developed abdominal pain, nausea, vomiting and diarrhea, nonbloody. He denies orthostatic symptoms. He came to the emergency room on 11/12/2018 and was admitted. His white count was 11,600, hemoglobin 14.6, hematocrit 43.4, platelet count 245,000. Sodium 131, potassium 6.3, chloride 94, CO2 of 29, BUN 80, creatinine 5.6, calcium 10.4, glucose 83. Bilirubin 0.8, AST of 32, ALT of 18, alk phos of 50, total protein 8.5, albumin 5, lipase 585. Urine was negative for protein and blood with a specific gravity of 1.015. Today, his hemoglobin is 12.5, white count 6300. Sodium 133, potassium 5.4, chloride 94, CO2 of 31, BUN 83, creatinine 6, glucose 104, calcium 9.4. Albumin of 4.2, lipase 1260. He was also given Toradol and Zofran. He was started on . He was also given Kayexalate. An abdominal CAT scan without contrast showed the left kidney to be absent. There were two cysts in the right kidney with no hydronephrosis or obstructing renal calculi. His chest x-ray showed no active disease. PAST MEDICAL HISTORY: Please see the above. He denied diabetes, myocardial infarction or stroke. He is being treated for COPD and benign prostatic hypertrophy. ALLERGIES: HE HAS NO ALLERGIES. He states that he had been in [facility] in the past although he cannot say when. HOME MEDICATIONS: Include irbesartan/hydrochlorothiazide, Ellipta, Spiriva, Flomax and Singulair. SOCIAL HISTORY: He discontinued cigarettes 25 years ago. There is no alcohol or drug abuse. FAMILY HISTORY: He thinks there might be hypertension. REVIEW OF SYSTEMS: Please see the above. There was no chest pain or hemoptysis. He continued to produce urine with no pain, incontinence or gross blood. PHYSICAL EXAMINATION: GENERAL: He was awake and alert, in no acute distress, comfortable in bed. VITAL SIGNS: His temperature was 97.6. Pulse was 62. His blood pressure initially was 93/58 and is presently 111/74. NECK: There was no jugular venous distention at 30 degrees. LUNGS: Reveal distant sounds, prolonged inspiration and expiration and occasional coarse rales at the bases. HEART: Rhythm was regular. ABDOMEN: Soft, obese, nontender. There was no definite hepatomegaly or palpable bladder. MUSCULOSKELETAL: There was no CVA tenderness or presacral edema, and he moved all extremities. IMPRESSION: Acute kidney injury, ? chronic kidney disease probably secondary to decreased renal mass and hypertension, gastroenteritis, etiology unclear, chronic obstructive pulmonary disease, unilateral nephrectomy and hypertension. related to volume depletion and medication toxicity. Would continue intravenous saline. Urine for protein, creatinine, and sodium. Would avoid nephrotoxins including angiotensin-converting enzyme inhibitors, contrast and nonsteroidal anti-inflammatory drugs. May require the initiation of renal replacement therapy. Thank you for your kind referral. We will continue to follow with you. Sincerely, Jean-Pierre Rasheed MD
--- NOTE | 2018-11-14 09:20 | CP.PCM.PN ---
<[email or web address] - Last Filed: 11/14/18 10:33> Subjective - Date & Time of Evaluation Date of Evaluation: 11/14/18 Time of Evaluation: 09:18 - Subjective Subjective: GI Fellow PGY4, progress note. Patient is out of bed. He feels much better. He denies abdominal pain, nausea, or vomiting. He is tolerating diet. 5pt ROS completed and negative except for above. Objective - Vital Signs/Intake and Output Vital Signs (last 24 hours): Temp Pulse Resp BP Pulse Ox 973 F H 56 L 20 114/66 96 11/14/18 07:53 11/14/18 07:53 11/14/18 07:53 11/14/18 07:53 11/14/18 07:53 Intake and Output: 11/14/18 11/14/18 06:59 18:59 Intake Total 1300 Balance 1300 - Medications Medications: Current Medications Heparin Sodium (Porcine) (Heparin) 5,000 units SC Q8 [facility] Last Admin: 11/14/18 05:36 Dose: 5,000 units Hydrochlorothiazide (Microzide) 12.5 mg PO DAILY [facility] Last Admin: 11/13/18 11:04 Dose: Not Given Sodium Chloride (Sodium Chloride 0.9%) 1,000 mls @ 100 mls/hr IV .Q10H [facility] Last Admin: 11/13/18 21:03 Dose: 100 mls/hr Montelukast Sodium (Singulair) 10 mg PO DAILY [facility] Ondansetron HCl (Zofran Inj) 4 mg IVP Q6 PRN PRN Reason: Nausea/Vomiting Last Admin: 11/13/18 21:02 Dose: 4 mg Tamsulosin HCl (Flomax) 0.4 mg PO DAILY [facility] Last Admin: 11/13/18 11:03 Dose: 0.4 mg Tramadol HCl (Ultram) 50 mg PO Q12 PRN PRN Reason: Pain, severe (8-10) Last Admin: 11/13/18 21:01 Dose: 50 mg - Labs Labs: 11/13/18 07:50 11/13/18 12:28 - Constitutional Appears: Non-toxic, No Acute Distress - Head Exam Head Exam: NORMAL INSPECTION, NORMOCEPHALIC - ENT Exam ENT Exam: Mucous Membranes Moist, Normal Exam - Respiratory Exam Respiratory Exam: Clear to Ausculation Bilateral, NORMAL BREATHING PATTERN - GI/Abdominal Exam GI & Abdominal Exam: Soft, Normal Bowel Sounds. absent: Tenderness - Neurological Exam Neurological Exam: Alert, Awake, Oriented x3 - Psychiatric Exam Psychiatric exam: Normal Affect, Normal Mood Assessment and Plan - Assessment and Plan (Free Text) Assessment: #Abdominal pain - resolved #Hyperkalemia #Hyponatremia #CKD, likely GERMAN from poor PO intake #HTN #COPD PLAN: -CT A/P showed small gallstones, absent left kidney, right large kidney cyst, diverticulosis -Doubt pancreatitis or cholecystitis -Recommend continue supportive care with IV hydration and kayexalate -Follow electrolytes -Follow up nephrology recs -Zofran as needed -Currently tolerating heart healthy diet. If still having N/V would reduce diet to Full liquid diet. Case discussed with Dr. Cox, see attestation. <Murray Cox - Last Filed: 11/14/18 10:54> Objective - Vital Signs/Intake and Output Vital Signs (last 24 hours): Temp Pulse Resp BP Pulse Ox 973 F H 56 L 20 114/66 96 11/14/18 07:53 11/14/18 07:53 11/14/18 07:53 11/14/18 07:53 11/14/18 07:53 Intake and Output: 11/14/18 11/14/18 06:59 18:59 Intake Total 1300 Balance 1300 - Medications Medications: Current Medications Heparin Sodium (Porcine) (Heparin) 5,000 units SC Q8 [facility] Last Admin: 11/14/18 09:36 Dose: 5,000 units Hydrochlorothiazide (Microzide) 12.5 mg PO DAILY [facility] Last Admin: 11/14/18 09:24 Dose: 12.5 mg Sodium Chloride (Sodium Chloride 0.9%) 1,000 mls @ 100 mls/hr IV .Q10H [facility] Last Admin: 11/13/18 21:03 Dose: 100 mls/hr Montelukast Sodium (Singulair) 10 mg PO DAILY [facility] Last Admin: 11/14/18 09:23 Dose: 10 mg Ondansetron HCl (Zofran Inj) 4 mg IVP Q6 PRN PRN Reason: Nausea/Vomiting Last Admin: 11/13/18 21:02 Dose: 4 mg Tamsulosin HCl (Flomax) 0.4 mg PO DAILY [facility] Last Admin: 11/14/18 09:23 Dose: 0.4 mg Tramadol HCl (Ultram) 50 mg PO Q12 PRN PRN Reason: Pain, severe (8-10) Last Admin: 11/13/18 21:01 Dose: 50 mg - Labs Labs: 11/13/18 07:50 11/13/18 12:28 Attending/Attestation - Attestation I have personally seen and examined this patient.: Yes I have fully participated in the care of the patient.: Yes I have reviewed all pertinent clinical information, including history, physical exam and plan: Yes Notes (Text): 11/14/18 10:51 Patient with improvement in abdominal sympoms. No nausea and vomiting. Cr eatinine somewhat improved. Review of office records show Cr=2.6 in 02/2016. Also treated successfully for HCV in 2004 with PEG-IF and ribavirin. Renal follow up needed. No plans for further GI work up at this time.
--- NOTE | 2018-11-14 12:35 | CP.PCM.PN ---
Subjective - Date & Time of Evaluation Date of Evaluation: 11/14/18 Time of Evaluation: 12:33 - Subjective Subjective: Feels much yg no nausea, vomiting,diarrhea UO improved no chemistries done today Likely has GERMAN due to volume depletion and diurtic use and ARB use exacerbating CKD Objective - Vital Signs/Intake and Output Vital Signs (last 24 hours): Temp Pulse Resp BP Pulse Ox 973 F H 56 L 20 114/66 96 11/14/18 07:53 11/14/18 07:53 11/14/18 07:53 11/14/18 07:53 11/14/18 07:53 Intake and Output: 11/14/18 11/14/18 06:59 18:59 Intake Total 1300 Balance 1300 - Medications Medications: Current Medications Heparin Sodium (Porcine) (Heparin) 5,000 units SC Q8 [facility] Last Admin: 11/14/18 09:36 Dose: 5,000 units Hydrochlorothiazide (Microzide) 12.5 mg PO DAILY [facility] Last Admin: 11/14/18 09:24 Dose: 12.5 mg Sodium Chloride (Sodium Chloride 0.9%) 1,000 mls @ 100 mls/hr IV .Q10H [facility] Last Admin: 11/13/18 21:03 Dose: 100 mls/hr Montelukast Sodium (Singulair) 10 mg PO DAILY [facility] Last Admin: 11/14/18 09:23 Dose: 10 mg Ondansetron HCl (Zofran Inj) 4 mg IVP Q6 PRN PRN Reason: Nausea/Vomiting Last Admin: 11/13/18 21:02 Dose: 4 mg Tamsulosin HCl (Flomax) 0.4 mg PO DAILY [facility] Last Admin: 11/14/18 09:23 Dose: 0.4 mg Tramadol HCl (Ultram) 50 mg PO Q12 PRN PRN Reason: Pain, severe (8-10) Last Admin: 11/13/18 21:01 Dose: 50 mg - Labs Labs: 11/13/18 07:50 11/13/18 12:28 - Constitutional Appears: Non-toxic, No Acute Distress, Chronically Ill - Head Exam Head Exam: ATRAUMATIC, NORMAL INSPECTION - Eye Exam Eye Exam: EOMI, Normal appearance - Neck Exam Neck Exam: Normal Inspection. absent: Tenderness - Respiratory Exam Respiratory Exam: Clear to Ausculation Bilateral, NORMAL BREATHING PATTERN - Cardiovascular Exam Cardiovascular Exam: REGULAR RHYTHM, +S1 - GI/Abdominal Exam GI & Abdominal Exam: Soft. absent: Tenderness - Extremities Exam Extremities Exam: Normal Inspection. absent: Tenderness - Neurological Exam Neurological Exam: Awake, CN II-XII Intact - Skin Skin Exam: Dry, Warm Assessment and Plan (1) GERMAN (acute kidney injury) Status: Acute (2) CKD (chronic kidney disease) stage 4, GFR 15-29 ml/min Status: Acute (3) Hyperkalemia Status: Acute (4) Pancreatitis Status: Acute (5) Solitary kidney, acquired Status: Acute - Assessment and Plan (Free Text) Plan: stop HCTZ continue IV fluids needs corin chemistries no KALEIGH I in patient with solitary kidney
[2018-11-14 13:10] LABS: HEMOGLOBIN 11.1 g/dL (12.0-18.0); MEAN CELL VOLUME 91.5 fL (80.0-94.0); MEAN CORPUSCULAR HEMOGLOBIN 30.8 pg (27.0-31.0); MEAN CORPUSCULAR HGB CONC 33.6 g/dL (33.0-37.0); MEAN PLATELET VOLUME 7.9 fL (7.2-11.7); RBC 3.6 Mil/uL (4.40-5.90); RED CELL DISTRIBUTION WIDTH 14.7 % (11.5-14.5); WHITE BLOOD COUNT 5.6 K/uL (4.8-10.8)
--- NOTE | 2018-11-14 13:19 | CP.PCM.PN ---
Subjective - Date & Time of Evaluation Date of Evaluation: 11/14/18 Time of Evaluation: 13:19 - Subjective Subjective: Pt is seen and examined Feels better Objective - Vital Signs/Intake and Output Vital Signs (last 24 hours): Temp Pulse Resp BP Pulse Ox 973 F H 56 L 20 114/66 96 11/14/18 07:53 11/14/18 07:53 11/14/18 07:53 11/14/18 07:53 11/14/18 07:53 Intake and Output: 11/14/18 11/14/18 06:59 18:59 Intake Total 1300 Balance 1300 - Medications Medications: Current Medications Heparin Sodium (Porcine) (Heparin) 5,000 units SC Q8 [facility] Last Admin: 11/14/18 09:36 Dose: 5,000 units Sodium Chloride (Sodium Chloride 0.9%) 1,000 mls @ 100 mls/hr IV .Q10H [facility] Last Admin: 11/13/18 21:03 Dose: 100 mls/hr Montelukast Sodium (Singulair) 10 mg PO DAILY [facility] Last Admin: 11/14/18 09:23 Dose: 10 mg Ondansetron HCl (Zofran Inj) 4 mg IVP Q6 PRN PRN Reason: Nausea/Vomiting Last Admin: 11/13/18 21:02 Dose: 4 mg Tamsulosin HCl (Flomax) 0.4 mg PO DAILY [facility] Last Admin: 11/14/18 09:23 Dose: 0.4 mg Tramadol HCl (Ultram) 50 mg PO Q12 PRN PRN Reason: Pain, severe (8-10) Last Admin: 11/13/18 21:01 Dose: 50 mg - Labs Labs: 11/14/18 13:08 11/13/18 12:28 - Eye Exam Eye Exam: Normal appearance - ENT Exam ENT Exam: Mucous Membranes Moist - Respiratory Exam Respiratory Exam: Clear to Ausculation Bilateral - Cardiovascular Exam Cardiovascular Exam: REGULAR RHYTHM, RRR - GI/Abdominal Exam GI & Abdominal Exam: Soft, Normal Bowel Sounds - Extremities Exam Extremities Exam: Normal Inspection Assessment and Plan (1) GERMAN (acute kidney injury) Status: Acute (2) Abdominal pain Status: Acute - Assessment and Plan (Free Text) Plan: Continue IVF d/c planning in [place] if cleared by nephrology Rest care as per orders
[2018-11-14 13:30] LABS: CALCIUM 7.6 mg/dl (8.6-10.4)
[2018-11-15] MEDS: Sodium Chloride 0.9% 1,000 ML IV SCH (02:15)
[2018-11-15 08:22] VITALS: PULSE 68
[2018-11-15 08:31] VITALS: BP 111/66; TEMP 97.2; O2SAT 94
--- NOTE | 2018-11-15 08:42 | CP.PCM.PN ---
<Camilo Brooks - Last Filed: 11/15/18 08:39> Subjective - Date & Time of Evaluation Date of Evaluation: 11/15/18 Time of Evaluation: 08:39 - Subjective Subjective: No new problems. Tolerating diet. No complaints. Requesting to be discharged. Objective - Vital Signs/Intake and Output Vital Signs (last 24 hours): Temp Pulse Resp BP Pulse Ox 97.2 F L 68 20 111/66 94 L 11/15/18 07:25 11/15/18 07:35 11/15/18 07:25 11/15/18 07:25 11/15/18 07:25 Intake and Output: 11/15/18 11/15/18 06:59 18:59 Intake Total 300 Balance 300 - Medications Medications: Current Medications Heparin Sodium (Porcine) (Heparin) 5,000 units SC Q8 [facility] Last Admin: 11/15/18 05:19 Dose: Not Given Sodium Chloride (Sodium Chloride 0.9%) 1,000 mls @ 100 mls/hr IV .Q10H [facility] Last Admin: 11/15/18 02:15 Dose: Not Given Montelukast Sodium (Singulair) 10 mg PO DAILY [facility] Last Admin: 11/14/18 09:23 Dose: 10 mg Ondansetron HCl (Zofran Inj) 4 mg IVP Q6 PRN PRN Reason: Nausea/Vomiting Last Admin: 11/13/18 21:02 Dose: 4 mg Tamsulosin HCl (Flomax) 0.4 mg PO DAILY [facility] Last Admin: 11/14/18 09:23 Dose: 0.4 mg Tramadol HCl (Ultram) 50 mg PO Q12 PRN PRN Reason: Pain, severe (8-10) Last Admin: 11/13/18 21:01 Dose: 50 mg - Labs Labs: 11/14/18 13:08 11/14/18 13:08 - Constitutional Appears: Non-toxic, No Acute Distress - Head Exam Head Exam: ATRAUMATIC, NORMAL INSPECTION - Eye Exam Eye Exam: EOMI, Normal appearance - Respiratory Exam Respiratory Exam: Clear to Ausculation Bilateral, NORMAL BREATHING PATTERN - Cardiovascular Exam Cardiovascular Exam: REGULAR RHYTHM, +S1, +S2 - GI/Abdominal Exam GI & Abdominal Exam: Soft, Normal Bowel Sounds. absent: Tenderness - Extremities Exam Extremities Exam: Normal Inspection. absent: Pedal Edema - Neurological Exam Neurological Exam: Alert, Awake, Oriented x3 - Psychiatric Exam Psychiatric exam: Normal Affect, Normal Mood Assessment and Plan - Assessment and Plan (Free Text) Assessment: #Abdominal pain - resolved #Hx of HCV s/p treatment Peginterferon and ribavirin #Hyperkalemia #Hyponatremia #CKD, likely GERMAN from poor PO intake #HTN #COPD PLAN: -CT A/P showed small gallstones, absent left kidney, right large kidney cyst, diverticulosis -Doubt pancreatitis or cholecystitis -Follow electrolytes -Follow up nephrology recs -Zofran as needed -Currently tolerating heart healthy diet. -OK to d/c from GI perspective Case discussed with Dr. Cox, see attestation. <Murray Cox - Last Filed: 11/15/18 10:32> Objective - Vital Signs/Intake and Output Vital Signs (last 24 hours): Temp Pulse Resp BP Pulse Ox 97.2 F L 68 20 111/66 94 L 11/15/18 07:25 11/15/18 07:35 11/15/18 07:25 11/15/18 07:25 11/15/18 07:25 Intake and Output: 11/15/18 11/15/18 06:59 18:59 Intake Total 300 Balance 300 - Medications Medications: Current Medications Heparin Sodium (Porcine) (Heparin) 5,000 units SC Q8 [facility] Last Admin: 11/15/18 05:19 Dose: Not Given Sodium Chloride (Sodium Chloride 0.9%) 1,000 mls @ 100 mls/hr IV .Q10H [facility] Last Admin: 11/15/18 02:15 Dose: Not Given Montelukast Sodium (Singulair) 10 mg PO DAILY [facility] Last Admin: 11/15/18 09:49 Dose: 10 mg Ondansetron HCl (Zofran Inj) 4 mg IVP Q6 PRN PRN Reason: Nausea/Vomiting Last Admin: 11/13/18 21:02 Dose: 4 mg Tamsulosin HCl (Flomax) 0.4 mg PO DAILY [facility] Last Admin: 11/15/18 09:49 Dose: 0.4 mg Tramadol HCl (Ultram) 50 mg PO Q12 PRN PRN Reason: Pain, severe (8-10) Last Admin: 11/13/18 21:01 Dose: 50 mg - Labs Labs: 11/14/18 13:08 11/14/18 13:08 Attending/Attestation - Attestation I have personally seen and examined this patient.: Yes I have fully participated in the care of the patient.: Yes I have reviewed all pertinent clinical information, including history, physical exam and plan: Yes Notes (Text): 11/15/18 10:31 Patient feeling well and tolerating diet. Cr back to baseline level at 2.6. Plan for discharge today. Out patient follow up with me as needed. Patient seen and examined with GI team. Recall as needed.
--- NOTE | 2018-11-15 09:51 | CP.PCM.PN ---
Subjective - Date & Time of Evaluation Date of Evaluation: 11/15/18 Time of Evaluation: 09:48 - Subjective Subjective: feels much better creat decreased to 2.6; baseline creat not known but has h/o CKD and solitary kidney renal cyst likely benign HTN controlled Objective - Vital Signs/Intake and Output Vital Signs (last 24 hours): Temp Pulse Resp BP Pulse Ox 97.2 F L 68 20 111/66 94 L 11/15/18 07:25 11/15/18 07:35 11/15/18 07:25 11/15/18 07:25 11/15/18 07:25 Intake and Output: 11/15/18 11/15/18 06:59 18:59 Intake Total 300 Balance 300 - Medications Medications: Current Medications Heparin Sodium (Porcine) (Heparin) 5,000 units SC Q8 [facility] Last Admin: 11/15/18 05:19 Dose: Not Given Sodium Chloride (Sodium Chloride 0.9%) 1,000 mls @ 100 mls/hr IV .Q10H [facility] Last Admin: 11/15/18 02:15 Dose: Not Given Montelukast Sodium (Singulair) 10 mg PO DAILY [facility] Last Admin: 11/14/18 09:23 Dose: 10 mg Ondansetron HCl (Zofran Inj) 4 mg IVP Q6 PRN PRN Reason: Nausea/Vomiting Last Admin: 11/13/18 21:02 Dose: 4 mg Tamsulosin HCl (Flomax) 0.4 mg PO DAILY [facility] Last Admin: 11/14/18 09:23 Dose: 0.4 mg Tramadol HCl (Ultram) 50 mg PO Q12 PRN PRN Reason: Pain, severe (8-10) Last Admin: 11/13/18 21:01 Dose: 50 mg - Labs Labs: 11/14/18 13:08 11/14/18 13:08 - Constitutional Appears: No Acute Distress, Chronically Ill - Head Exam Head Exam: ATRAUMATIC, NORMAL INSPECTION - Eye Exam Eye Exam: EOMI, Normal appearance - Neck Exam Neck Exam: Normal Inspection. absent: Tenderness - Respiratory Exam Respiratory Exam: Clear to Ausculation Bilateral, NORMAL BREATHING PATTERN - Cardiovascular Exam Cardiovascular Exam: REGULAR RHYTHM, +S1 - GI/Abdominal Exam GI & Abdominal Exam: Soft. absent: Tenderness - Extremities Exam Extremities Exam: Normal Inspection. absent: Tenderness - Neurological Exam Neurological Exam: Awake, CN II-XII Intact - Skin Skin Exam: Dry, Warm Assessment and Plan (1) GERMAN (acute kidney injury) Status: Acute (2) CKD (chronic kidney disease) stage 4, GFR 15-29 ml/min Status: Acute (3) Hyperkalemia Status: Acute (4) Pancreatitis Status: Acute (5) Solitary kidney, acquired Status: Acute - Assessment and Plan (Free Text) Plan: GERMAN resolving, HTN controlled OK for discharge Patient advised to avoid NSAIDs, ARB or [place] Is; will follow up in office for CKD
--- NOTE | 2018-11-15 10:06 | CP.PCM.PN ---
Subjective - Date & Time of Evaluation Date of Evaluation: 11/15/18 Time of Evaluation: 09:50 - Subjective Subjective: patient seen today denies any chest pain, sob, dizziness, abdominal pain, N/V , wants to go home cr- improved- 2.6<5.1<[address] Ingram today cleared for discharge home today and f/u with his office Objective - Vital Signs/Intake and Output Vital Signs (last 24 hours): Temp Pulse Resp BP Pulse Ox 97.2 F L 68 20 111/66 94 L 11/15/18 07:25 11/15/18 07:35 11/15/18 07:25 11/15/18 07:25 11/15/18 07:25 Intake and Output: 11/15/18 11/15/18 06:59 18:59 Intake Total 300 Balance 300 - Medications Medications: Current Medications Heparin Sodium (Porcine) (Heparin) 5,000 units SC Q8 [facility] Last Admin: 11/15/18 05:19 Dose: Not Given Sodium Chloride (Sodium Chloride 0.9%) 1,000 mls @ 100 mls/hr IV .Q10H [facility] Last Admin: 11/15/18 02:15 Dose: Not Given Montelukast Sodium (Singulair) 10 mg PO DAILY [facility] Last Admin: 11/15/18 09:49 Dose: 10 mg Ondansetron HCl (Zofran Inj) 4 mg IVP Q6 PRN PRN Reason: Nausea/Vomiting Last Admin: 11/13/18 21:02 Dose: 4 mg Pneumococcal Polyvalent Vaccine (Pneumovax 23 Vaccine) 0.5 ml IM .ONCE ONE Stop: 11/15/18 10:16 Tamsulosin HCl (Flomax) 0.4 mg PO DAILY [facility] Last Admin: 11/15/18 09:49 Dose: 0.4 mg Tramadol HCl (Ultram) 50 mg PO Q12 PRN PRN Reason: Pain, severe (8-10) Last Admin: 11/13/18 21:01 Dose: 50 mg - Labs Labs: 11/14/18 13:08 11/14/18 13:08 Assessment and Plan - Assessment and Plan (Free Text) Assessment: A/P 72 y/o male with pmhx of CKD, HTN, enlarged prostate, COPD presents to the ER complaining of diffuse abdominal pain which has been present for the past 1 week. and admitted with acute Renal failure, Hyperkalemia, Pancreatitis cr- improved seen by Dr. Ingram cleared for discharge home from renal stand point and f/u with his office D/w Dr. Benton , cleared for discharge patient home today and f/u with Dr. Rodas office in 1 week 'patient instructed to avoid NSAID
[2018-11-15] MEDS ORDERED: Pneumococcal 23-Valent Vaccine IM ONE ×2 (10:15→10:30)
--- NOTE | 2018-11-20 23:53 | CP.PCM.DIS ---
Provider - Provider Date of Admission: 11/12/18 17:43 Attending physician: Marcie Benton MD Consults: 11/12/18 21:04 Gastroenterology Consult Routine Comment: Consulting Provider: Murray Cox Consulting Physician: Murray Cox Reason for Consult: abdominal pain 11/12/18 21:05 Nephrology Consult Routine Comment: Consulting Provider: Marc Ingram Consulting Physician: Marc Ingram Reason for Consult: renal failure 11/12/18 21:11 Inpatient [employer] Core Measures Referral Routine Comment: Physician Instructions: Reason For Exam: discharge planning 11/12/18 21:14 Social Work Referral Routine Comment: d/c planning Physician Instructions: Reason For Exam: lives alone/d/c planning Time Spent in preparation of Discharge (in minutes): 35 Hospital Course - Lab Results Lab Results: Most Recent Lab Values WBC 5.6 K/uL (4.8-10.8) 11/14/18 13:08 RBC 3.60 Mil/uL (4.40-5.90) L 11/14/18 13:08 Hgb 11.1 g/dL (12.0-18.0) L 11/14/18 13:08 Hct 32.9 % (35.0-51.0) L 11/14/18 13:08 MCV 91.5 fL (80.0-94.0) 11/14/18 13:08 MCH 30.8 pg (27.0-31.0) 11/14/18 13:08 MCHC 33.6 g/dL (33.0-37.0) 11/14/18 13:08 RDW 14.7 % (11.5-14.5) H 11/14/18 13:08 Plt Count 169 K/uL (130-400) 11/14/18 13:08 MPV 7.9 fL (7.2-11.7) 11/14/18 13:08 Neut % (Auto) 64.8 % (50.0-75.0) 11/13/18 07:50 Lymph % (Auto) 23.9 % (20.0-40.0) 11/13/18 07:50 [place] % (Auto) 7.2 % (0.0-10.0) 11/13/18 07:50 Eos % (Auto) 3.5 % (0.0-4.0) 11/13/18 07:50 Baso % (Auto) 0.6 % (0.0-2.0) 11/13/18 07:50 Neut # (Auto) 4.1 K/uL (1.8-7.0) 11/13/18 07:50 Lymph # (Auto) 1.5 K/uL (1.0-4.3) 11/13/18 07:50 [place] # (Auto) 0.5 K/uL (0.0-0.8) 11/13/18 07:50 Eos # (Auto) 0.2 K/uL (0.0-0.7) 11/13/18 07:50 Baso # (Auto) 0.0 K/uL (0.0-0.2) 11/13/18 07:50 Sodium 134 mmol/L (132-148) 11/14/18 13:08 Potassium 4.5 mmol/L (3.6-5.2) 11/14/18 13:08 Chloride 105 mmol/L (98-107) 11/14/18 13:08 Carbon Dioxide 24 mmol/L (22-30) 11/14/18 13:08 Anion Gap 9 (10-20) L 11/14/18 13:08 BUN 48 mg/dL (9-20) H 11/14/18 13:08 Creatinine 2.6 mg/dL (0.8-1.5) H 11/14/18 13:08 Est GFR ( Amer) 30 11/14/18 13:08 Est GFR (Non-Af Amer) 25 11/14/18 13:08 POC Glucose (mg/dL) 116 mg/dL (65-110) H 11/13/18 00:40 Random Glucose 78 mg/dL (75-110) D 11/14/18 13:08 Calcium 7.6 mg/dl (8.6-10.4) L 11/14/18 13:08 Total Bilirubin 0.3 mg/dL (0.2-1.3) 11/13/18 07:50 AST 33 U/L (17-59) 11/13/18 07:50 ALT 15 U/L (21-72) L 11/13/18 07:50 Alkaline Phosphatase 49 U/L (38-126) 11/13/18 07:50 Troponin I < 0.0120 ng/mL (0.00-0.120) 11/12/18 16:08 Total Protein 6.7 g/dL (6.3-8.3) 11/13/18 07:50 Albumin 4.2 g/dL (3.5-5.0) 11/13/18 07:50 Globulin 2.5 gm/dL (2.2-3.9) 11/13/18 07:50 Albumin/Globulin Ratio 1.7 (1.0-2.1) 11/13/18 07:50 Amylase 163 U/L (30-110) H 11/13/18 07:50 Lipase 1260 U/L (23-300) H 11/13/18 07:50 Urine Color Yellow (YELLOW) 11/12/18 17:32 Urine Clarity Hazy (Clear) 11/12/18 17:32 Urine pH 7.0 (5.0-8.0) 11/12/18 17:32 Ur Specific Maury 1.015 (1.003-1.030) 11/12/18 17:32 Urine Protein Negative mg/dL (NEGATIVE) 11/12/18 17:32 Urine Glucose (UA) Normal mg/dL (Normal) 11/12/18 17:32 Urine Ketones Negative mg/dL (NEGATIVE) 11/12/18 17:32 Urine Blood Negative (NEGATIVE) 11/12/18 17:32 Urine Nitrate Negative (NEGATIVE) 11/12/18 17:32 Urine Bilirubin Negative (NEGATIVE) 11/12/18 17:32 Urine Urobilinogen Normal mg/dL (0.2-1.0) 11/12/18 17:32 Ur Leukocyte Esterase Neg Mikaela/uL (Negative) 11/12/18 17:32 Urine WBC (Auto) 1 /hpf (0-5) 11/12/18 17:32 Urine RBC (Auto) 1 /hpf (0-3) 11/12/18 17:32 Ur Squamous Epith Cells < 1 /hpf (0-5) 11/12/18 17:32 Ur Random Creatinine 63.3 mg/dL 11/13/18 18:45 U Random Total Protein 14.0 mg/dL (0.0-12.0) H 11/13/18 18:45 Ur Random Sodium 117 mmol/L 11/13/18 18:45 - Hospital Course Hospital Course: Pt presented with abdominal pain, n/v/d. He was also found to have elevated Cr. Pt improved clinically and was discharged home to be followed up by PMD, GI and nephrology Discharge Exam - Head Exam Head Exam: ATRAUMATIC, NORMAL INSPECTION - Eye Exam Eye Exam: Normal appearance - Respiratory Exam Respiratory Exam: Clear to PA & Lateral - Cardiovascular Exam Cardiovascular Exam: REGULAR RHYTHM, +S1, +S2 - GI/Abdominal Exam GI & Abdominal Exam: Normal Bowel Sounds - Neurological Exam Neurological exam: Alert, Oriented x3 - Psychiatric Exam Psychiatric exam: Normal Affect, Normal Mood - Skin Skin Exam: Normal Color Discharge Plan - Follow Up Plan Condition: FAIR Disposition: HOME/ ROUTINE Instructions: Renal Failure Diet (DC), Hyperkalemia (DC), Acute Abdominal Pain (DC), Acute Abdominal Pain (GEN) Additional Instructions: Please f/u with Dr. Rodas office in 1 week Please f/u with Dr. Ingram office - call and make appointment PLEASE DO NOT USE ANY NSAID, - ( NO ADVIL, NO MOTRIN, NO NAPROXEN ) PLEASE RESUME ALL OTHER HOME MEDICATIONS Referrals: Marc Ingram MD [Staff Provider] - Glen Rodas DO [Staff Provider] - 1 Week
== END 2018-11-15 10:30 | disposition home or self-care (01) | DRG 682 ==
LOC: C.ER 14:21 → C.9E 17:43 → C.5S 18:32
PROVIDERS: ADMIT Internal Medicine Critical Care Medicine; ATTEND Internal Medicine Critical Care Medicine
DX: N17.9 Acute kidney failure, unspecified (principal); K85.90 Acute pancreatitis without necrosis or infection, unspecified; E87.1 Hypo-osmolality and hyponatremia; E87.5 Hyperkalemia; I12.9 Hypertensive chronic kidney disease with stage 1 through stage 4 chronic kidney disease, or unspecified chronic kidney disease; N40.0 Benign prostatic hyperplasia without lower urinary tract symptoms; E78.00 Pure hypercholesterolemia, unspecified; J44.9 Chronic obstructive pulmonary disease, unspecified; K80.20 Calculus of gallbladder without cholecystitis without obstruction; Z87.891 Personal history of nicotine dependence; E86.9 Volume depletion, unspecified; K52.9 Noninfective gastroenteritis and colitis, unspecified; N18.4 Chronic kidney disease, stage 4 (severe); N28.1 Cyst of kidney, acquired; T50.2X5A Adverse effect of carbonic-anhydrase inhibitors, benzothiadiazides and other diuretics, initial encounter; Z90.5 Acquired absence of kidney

== ENCOUNTER 2019-01-08 14:27 | Outpatient (CLI) | payer MEDICARE, MEDICAID | END 2019-01-08 14:28 | disposition home or self-care (01) | LOC: C.RADH 14:27 | DX: M54.5 Low back pain (principal) ==